=== PATIENT | female | born 1980 | race Hispanic/Latino ===

== ENCOUNTER 2020-08-27 20:58 | Emergency (ER) | payer SELFPAY ==
[~2020-08-27] VITALS: Ht 154.9 cm; Wt 65.3 kg
[2020-08-27] MEDS ORDERED: IBUPROFEN 600 MG TAB PO STA (21:38)
[2020-08-27] MEDS ORDERED: IBUPROFEN 600 MG TAB ONE (22:12)
[2020-08-27] MEDS ORDERED: CYCLOBENZAPRINE5 MG PO (22:49)
[2020-08-27] MEDS ORDERED: NAPROSYN500 MG PO (22:49)
[2020-08-27 23:40] VITALS: BP 126/90
== END 2020-08-27 23:40 | disposition home or self-care (01) ==
LOC: FSED 21:35
DX: S13.4XXA Sprain of ligaments of cervical spine, initial encounter (principal); M54.6 Pain in thoracic spine; V43.62XA Car passenger injured in collision with other type car in traffic accident, initial encounter; Y92.488 Other paved roadways as the place of occurrence of the external cause; D64.9 Anemia, unspecified
CPT/HCPCS: 71045; 72040; 99283

== ENCOUNTER 2025-03-04 15:19 | Emergency (ER) | payer OTHER ==
[~2025-03-04] VITALS: Ht 154.9 cm; Wt 62.8 kg
[~2025-03-04 15:19] MED LIST: CYCLOBENZAPRINE5 MG PO; NAPROSYN500 MG PO
[2025-03-04 15:24] VITALS: PULSE 83; RESP 16; TEMP 97.8; O2SAT 99
[2025-03-04] MEDS ORDERED: BACTRIM DS TAB1 EACH PO (15:38)
[2025-03-04] MEDS ORDERED: AMLODIPINE BESY10 MG PO (15:51)
[2025-03-04] MEDS ORDERED: CETIRIZINE HCL10 MG (15:51)
[2025-03-04] MEDS ORDERED: NEURONTIN300 MG PO (15:51)
[2025-03-04] MEDS ORDERED: FUROSEMIDE40 MG PO (15:51)
[2025-03-04] MEDS ORDERED: VITAMIN D3250 MC1 (15:51)
[2025-03-04] MEDS ORDERED: ATORVASTATIN CA10 MG PO (15:51)
[2025-03-04] MEDS ORDERED: BUSPIRONE HCL15 MG (15:51)
== END 2025-03-04 15:48 | disposition home or self-care (01) ==
LOC: FSED 15:24
DX: N75.0 Cyst of Bartholin's gland (principal); I10 Essential (primary) hypertension; D64.9 Anemia, unspecified; E78.5 Hyperlipidemia, unspecified; M79.7 Fibromyalgia; F31.9 Bipolar disorder, unspecified
CPT/HCPCS: 99283